=== PATIENT | female | born 1945 | race Caucasian/White ===

== ENCOUNTER 2017-04-25 12:44 | Emergency (ER) | payer OTHER ==
[~2017-04-25] VITALS: Ht 162.6 cm; Wt 55.3 kg
--- NOTE | ~2017-04-25 | EKG ---
[address] [address] ELECTROCARDIOGRAM REPORT Name: CHINYEREBRYNN MARTINEZ MONO Room #: DEP [facility]#: [id number] Admission: 04/25/17 Attend Phys: Discharge: 04/25/17 Date of : 49 Report #: [id number] THIS REPORT FOR: //name// [facility] ED Test Date: 2017-04-25 Test Time: 12:51:18 Pat Name: BRYNN SCOTT Department: Room: Gender: F Broom Stitcher: Yumiko LEVIN : 1945 Requested By: Sondra Moraes Order Number: [id number] MD: Julio Smith Measurements Intervals [place] Rate: 103 P: 80 ND: 133 QRS: 22 QRSD: 80 T: 25 QT: 360 QTc: 471 Interpretive Statements Sinus tachycardia Biatrial enlargement Baseline wander in lead(s) V3 Compared to ECG 02/25/1992 00:10:00 No significant changes Electronically Signed On 04-25-2017 16:25:31 CDT by Julio Smith [email or web address] <ELECTRONICALLY SIGNED> By: Julio Smith MD 04/25/17 [id number] Julio Smith MD /EPI
[~2017-04-25 12:44] MED LIST: ALBUTEROL INH INH; AMBEREN PO; FLONASE IH; MUCINEX600 MG PO; ONDANSETRON ODT4 MG PO; PREVACID 30MG C30 M1 PO
[2017-04-25] MEDS ORDERED: OMEPRAZOLE40 MG PO (13:22)
[2017-04-25] MEDS ORDERED: SYNTHROID125 MCG PO (13:22)
[2017-04-25 13:30] LABS: ABSOLUTE NEUTROPHILS 3.4 thou/uL (1.4-8.2); BASOPHILS 0.9 % (0.0-2.0); EOSINOPHILS 0.9 % (0.0-3.0); HEMATOCRIT 43.3 % (37.0-47.0); HEMOGLOBIN 14.3 gm/dL (12.0-15.0); LYMPHOCYTES 26.2 % (24.0-44.0); MCH 31.8 pg (26.0-34.0); MCHC 33.1 g/dL (28.0-37.0); MCV 96.3 fL (80.0-100.0); MONOCYTES 8.7 % (1.0-8.0); PLATELET COUNT 258 thou/uL (150-400); POLYS 63.3 % (36.0-66.0); RBC 4.49 mil/uL (4.20-5.00); WBC 5.4 thou/uL (4.0-11.0)
[2017-04-25 13:31] LABS: MANUAL DIFF NO
[2017-04-25 13:39] LABS: ANION GAP 11 mmol/L (7-16); BUN 17 mg/dL (7-18); CALCIUM 9.6 mg/dL (8.5-10.1); CHLORIDE 100 mmol/L (98-107); CO2 26 mmol/L (21-32); CREATININE 0.9 mg/dL (0.6-1.0); GLUCOSE 101 mg/dL (74-106); POTASSIUM 3.3 mmol/L (3.5-5.1); SODIUM 137 mmol/L (136-145)
[2017-04-25 13:45] LABS: TROPONIN-I < 0.04 ng/mL (<0.04-0.07)
[2017-04-25] MEDS ORDERED: LABETALOL HCL100 MG PO (14:54)
[2017-04-25 15:13] VITALS: BP 166/97
== END 2017-04-25 15:17 | disposition home or self-care (01) ==
LOC: ER 12:44
PROVIDERS: Emergency Medicine
DX: I10 Essential (primary) hypertension (principal); K21.9 Gastro-esophageal reflux disease without esophagitis; R00.2 Palpitations; J45.909 Unspecified asthma, uncomplicated; F10.99 Alcohol use, unspecified with unspecified alcohol-induced disorder; Z90.711 Acquired absence of uterus with remaining cervical stump; Z90.11 Acquired absence of right breast and nipple; Z85.3 Personal history of malignant neoplasm of breast; Z98.890 Other specified postprocedural states; Z88.8 Allergy status to other drugs, medicaments and biological substances